=== PATIENT | male | born 1975 | race Caucasian/White ===

== ENCOUNTER 2024-06-14 12:28 | Day surgery (SDC) | payer BC ==
[2024-06-14] MEDS: Lactated Ringers 1,000 ML IV SCH (13:05)
[2024-06-14] MEDS ORDERED: propofoL 500 MG/50 ML 50 ML ONE (14:11)
[2024-06-14] MEDS ORDERED: Lidocaine 2% 5 ML SDV ONE (14:41)
== END 2024-06-14 15:55 | disposition home or self-care (01) ==
LOC: MW.SDS 12:28
PROVIDERS: ATTEND Surgery
DX: K57.31 Diverticulosis of large intestine without perforation or abscess with bleeding (principal); K64.8 Other hemorrhoids; I10 Essential (primary) hypertension; Z87.891 Personal history of nicotine dependence
CPT/HCPCS: 45378; J2704; J7120; J3490